=== PATIENT | female | born 2000 | race Caucasian/White ===

== ENCOUNTER → 2022-11-13 09:21 | Outpatient (CLI) | payer BC, SELFPAY ==
--- NOTE | ~2022-11-13 | US_ITS ---
EXAMINATION: US OB /maternal detail DATE: 11/13/2022 10:12 INDICATION: anatomic survey. TECHNIQUE: Real-time ultrasound of the pelvis was performed. COMPARISON: None. FINDINGS: There is a single living fetus in variable presentation. The placenta is posterior, 6.1 cm from the cervix. The cervical length is 4.4 cm on transabdominal images, which is normal. heart rate is 155 beats per minute (bpm). The amniotic fluid volume is subjectively normal. The following biometric data were obtained: Biparietal diameter (BPD): 4.5 cm; head circumference (HC): 16.2 cm; abdominal circumference (AC): 13 .6 cm; femur length (FL): 2.7 cm. These measurements are concordant. Estimated weight is 255 g +/- 38 g, which correlates with the 31st percentile when 04/09/23 is u sed as estimated date of delivery. As single measurements, these parameters are each equal to the following estimated gestational ages: BPD: 19 weeks 3 days. HC: 19 weeks 0 days. AC: 19 weeks 0 days. FL: 18 weeks 2 days. estimated gestational age based solely on measurements from this exam is 19 weeks 0 days +/- 1 weeks 2 days. The cerebral ventricles, cerebellum, cisterna magna, nuchal fold, lip, and visualized portions of the spine are normal. The heart is not well visualized. The diaphragm, stomach, kidneys, and bladder are normal. There are two umbilical arteries to yield a 3-vessel cord. The cord insertion is normal. IMPRESSION: 1. Single living fetus in variable presentation. 2. Estimated weight is 255 g +/- 38 g, which correlates with the 31st percentile when 04/09/23 is used as estimated date of delivery. 3. heart not well visualized. Otherwise normal anatomic survey. Reviewed, dictated and finalized at location E. IMPRESSION: 1. Single living fetus in variable presentation. 2. Estimated weight is 255 g +/- 38 g, which correlates with the 31st pe rcentile when 04/09/23 is used as estimated date of delivery. 3. heart not well visualized. Otherwise normal anatomic survey.
== END ==
PROVIDERS: PCP Obstetrics & Gynecology Gynecologic Oncology; Visit Provider Obstetrics & Gynecology Gynecologic Oncology
DX: Z36.9 Encounter for antenatal screening, unspecified (principal)
CPT/HCPCS: 76805

== ENCOUNTER → 2022-12-04 09:20 | Outpatient (CLI) | payer BC, SELFPAY ==
--- NOTE | ~2022-12-04 | US_ITS ---
US OB limited 12/04/2022 09:52 Indication: heart rate not well visualized on prior examination. Procedure: High-resolution Limited transabdominal obstetrical ultrasound Comparison: 11/13/2022 Findings: There is a single living intrauterine in vertex presentation. heart rate is 148 BPM. Placenta is posterior measuring 4.8 cm to the cervix. Cervical length is 5.7 cm. Amniotic f luid is subjectively normal. Impression: 1: Single living intrauterine in vertex presentation. Reviewed, dictated and finalized at location A. Impression: 1: Single living intrauterine in vertex presentation.
== END ==
PROVIDERS: PCP Obstetrics & Gynecology; Visit Provider Obstetrics & Gynecology
DX: Z36.9 Encounter for antenatal screening, unspecified (principal); Z3A.00 Weeks of gestation of pregnancy not specified
CPT/HCPCS: 76815

== ENCOUNTER 2024-01-07 10:27 | Emergency (ER) | payer BC, SELFPAY ==
--- NOTE | ~2024-01-07 | XR_ITS ---
EXAMINATION: XR chest 2V DATE: 01/07/2024 11:04 INDICATION: Cough and shortness of breath. TECHNIQUE: Frontal and lateral views of the chest were obtained. COMPARISON: None. FINDINGS: There is no pneumonia, pleural effusion, or pneumothorax. The heart size is normal. IMPRESSION: 1. No acute cardiopulmonary disease. Reviewed, dictated and finalized at location A.
[2024-01-07 10:40] VITALS: BP 125/86; PULSE 101; RESP 16; TEMP 36.6; O2SAT 100
--- NOTE | 2024-01-07 10:41 | ED.URI ---
HPI - URI/Sore Throat General Chief Complaint: Upper Respiratory Infection Stated Complaint: pneumonia test Time Seen by Provider: 01/07/24 10:31 Source: patient and family Mode of arrival: ambulatory Limitations: no limitations History of Present Illness HPI Narrative: Gianfranco is a 23-year-old female patient presenting to the clinic today with complaints of a cough, sore throat, headache, nasal congestion, and mild shortness of breath. She reports symptoms started 2 days ago. Denies any known fever, chills, body aches. Denies any chest pain. She has concern for pneumonia MD elicited complaint: sore throat and nasal congestion Related Data Home Medications Medication Instructions Recorded Confirmed sertraline 50 mg tablet (Zoloft) 50 mg PO DAILY 12/28/23 01/07/24 norethindrone 1 mg-ethinyl 1 tablet DAILY 01/07/24 01/07/24 estradiol 20 mcg (21)-iron 75 mg (7) tablet (Blisovi Fe / (28)) Allergies Allergy/AdvReac Type Severity Reaction Status Date / Time Bleach (Sodium Hypochlorite) Allergy Unknown Verified 01/07/24 10:45 doxycycline Allergy Hives Verified 01/07/24 10:45 fluconazole Allergy Hives Verified 01/07/24 10:45 latex Allergy Unknown Verified 01/07/24 10:45 Review of Systems Review of Systems: Pertinent positives per HPI. Patient denies any fever, chills, rash, headache, visual changes, dizziness, chest pain, palpitations, nausea, vomiting, diarrhea, constipation, abdominal pain, or any urinary issues. [facility] Past Medical History Medical History Anxiety Chronic headaches Dysmenorrhea Vaginal discharge Family History Family History Grandparent Diabetes mellitus Cancer Heart disease Father Hypertension Heart disease Mother Hypertension Social History Social History Social History: 12/22/23 Very confident with medical forms/Rcd, assistance for food Smoking status: Never smoker Second hand tobacco smoke exposure: No Alcohol intake: current Substance use: never Substance use type: does not use Do You Feel Safe in your Home?: Yes Lack of Transportation: No Lack of Food: Never True Current Housing: I Have Housing Concerned About Future Housing: No Difficulty Paying Gas/Electric Bills: No Difficulty Paying for Meds: No Currently Unemployed: No Education: Trade/Vocational Certificate Difficulty w/ Childcare or Family Care: No Living arrangements: with family Occupation/Education: occupation Additional occupation/education comments: [employer] Agree to blood products: Yes Comments At the time of my signature, I reviewed and agree with the nursing past medical, surgical, social, and family history. There is no relevant family history pertinent to the patient complaint. Exam Narrative: General: Well-developed, obese, in no apparent distress Head: Normocephalic, atraumatic Eyes: Pupils equally round and reactive to light bilaterally, EOM intact, sclera and conjunctive clear, no discharge, lids normal Ears: TMs intact and congested, ear canals clear, no drainage, grossly hearing normal. Nose: Nares patent, clear nasal discharge, mild inflammation, no sinus tenderness. Mouth: Oral pharynx without lesions or masses, good dentition, MMM. Postnasal drip Neck: Supple, trachea midline, no enlargement of anterior or posterior cervical nodes, no thyroid masses or goiter palpable. Cardio: Regular rate and rhythm, s1 and s2 normal, no murmur appreciated. Resp: Clear to auscultation bilaterally, no rhonchi, rales, wheezing or rubs Course Course Emergency Course: Portions of this record may have been created with voice recognition software. Level of Care: Express Care Visit Vital Signs Vital signs: Vital Signs Temperature 36.6 C 01/07/24 10:40 Pulse Rate 101 H 01/07/24 10:40 Respiratory Rate 16 01/07/24 10:40 Blood Pressure 125/86 01/07/24 10:40 Pulse Oximetry 100 01/07/24 10:40 Oxygen Delivery Room Air 01/07/24 10:40 Temperature 36.6 C 01/07/24 10:40 Pulse Rate 101 H 01/07/24 10:40 Respiratory Rate 16 01/07/24 10:40 Blood Pressure 125/86 01/07/24 10:40 Pulse Oximetry 100 01/07/24 10:40 Oxygen Delivery Room Air 01/07/24 10:40 Vital signs reviewed MDM - URI/Sore Throat MDM Narrative Medical decision making narrative: At the time of visit patient is resting comfortably on the exam table. Patient appears to be nontoxic. Labs: COVID, influenza, and strep test were all negative in the clinic today. We will send strep for culture. Diagnostics: Chest x-rays negative for any acute cardiopulmonary process. Plan: I suspect patient has URI/pharyngitis. We will send strep for culture. Supportive measures were discussed with the patient and they voiced understanding discharge instructions and agrees to treatment plan. Return precautions reviewed Differential Diagnosis Differential diagnosis: Likely upper respiratory infection, otitis media, sinusitis, viral infection, bronchitis, influenza, pharyngitis and other (COVID) Lab Data Labs: Lab Results 01/07/24 01/07/24 Range/Units 11:09 11:19 POC Influenza A Ag Negative (Negative) POC Influenza B Ag Negative (Negative) POC Grp A Strep Screen Negative (Negative) Imaging Data Radiologist's impression: ITS Impressions Chest X-Ray 01/07/24 11:11 IMPRESSION: 1. No acute cardiopulmonary disease. Discharge Plan Discharge Clinical Impression: Upper respiratory infection Qualifiers: URI type: unspecified URI Qualified Code(s): J06.9 - Acute upper respiratory infection, unspecified Pharyngitis Qualifiers: Pharyngitis/tonsillitis etiology: unspecified etiology Qualified Code(s): J02.9 - Acute pharyngitis, unspecified Patient Disposition: Home, Self-Care Condition: Stable Instructions: Antibiotic Form, Pharyngitis (ED), Cold Symptoms (ED) Additional Instructions: COVID, influenza, and strep test were all negative in the clinic today. We will send strep for culture. Chest x-rays negative for any acute cardiopulmonary process. May take DayQuil/NyQuil for cold/flu symptoms Increase fluids and stay well hydrated Tylenol/motrin for pain/fever Flonase and OTC antihistamines as directed Vicks vapor rub to open sinuses Sinus rinses for congestion Cepacol spray, cough drops, throat lozenges, warm tea with honey/lemon, gargle salt water to soothe throat BRAT diet for diarrhea Clear liquids x 24 hours then advance as tolerated for nausea/vomiting Go to the ED if you develop a worsening in your condition- high fever not controlled by Tylenol or Motrin, dehydration, weakness, lethargy, shortness of breath, or chest pain. Follow up with your PCP in 3-5 days if symptoms persist. Prescriptions: No Action norethindrone-e.estradiol-iron [Blisovi Fe 04/03 (28)] 1 mg-20 mcg (21)/75 mg (7) tablet 1 tablet DAILY sertraline [Zoloft] 50 mg tablet 50 mg PO DAILY Follow-up/Referrals: UNKNOWN,DOCTOR [Primary Care Provider] - Stand Alone Forms: Work/School Release IP Time of Disposition: 11:20 Quality NIHSS Nursing Documentation ED NIHSS nursing documentation: reviewed/agree
[2024-01-07 11:11] LABS: EDSTREPNEGPOS1 Negative (Negative)
[2024-01-07 11:21] LABS: EDINFLUASCREEN Negative (Negative); EDINFLUBSCREEN Negative (Negative)
== END 2024-01-07 11:29 | disposition home or self-care (01) ==
PROVIDERS: Emergency Provider Nurse Practitioner Family
DX: J06.9 Acute upper respiratory infection, unspecified (principal); J02.9 Acute pharyngitis, unspecified; F41.9 Anxiety disorder, unspecified
CPT/HCPCS: 71046; 87081; 87804; 87880; 99213; G0463

== ENCOUNTER 2024-05-15 17:16 | Emergency (ER) | payer MEDICAID, SELFPAY ==
[2024-05-15 17:21] VITALS: BP 120/76; PULSE 125; RESP 20; TEMP 36.9; O2SAT 99
[2024-05-15 17:44] LABS: EDINFLUASCREEN Negative (Negative); EDINFLUBSCREEN Negative (Negative)
[2024-05-15 17:44] LABS: EDCOVIDSCREEN Negative (Negative)
--- NOTE | 2024-05-15 17:44 | ED.URI ---
HPI - URI/Sore Throat General Chief Complaint: Upper Respiratory Infection Stated Complaint: flu Like Time Seen by Provider: 05/15/24 17:45 Source: patient Mode of arrival: ambulatory Limitations: no limitations History of Present Illness HPI Narrative: 23 yo F presents with c/o fatigue, headache, bodyaches, chills fever starting at 10 pm last night. Taking tylenol and ibuprofen to treat symptoms. No nausea vomiting diarrhea. Denies congestion, cough, sore throat. All systems reviewed and negative except as noted above. Related Data Home Medications ?Medication ?Instructions ?Recorded ?Confirmed ?Last Taken ?Type sertraline 50 mg tablet (Zoloft) 50 mg PO DAILY 12/28/23 01/07/24 Unknown History norethindrone 1 mg-ethinyl 1 tablet DAILY 01/07/24 01/07/24 Unknown History estradiol 20 mcg (21)-iron 75 mg (7) tablet (Blisovi Fe 04/03 (28)) Allergies Allergy/AdvReac Type Severity Reaction Status Date / Time Bleach (Sodium Hypochlorite) Allergy Unknown Hives Verified 05/15/24 17:21 doxycycline Allergy Unknown Hives Verified 05/15/24 17:21 fluconazole Allergy Unknown Hives Verified 05/15/24 17:21 latex Allergy Unknown Hives Verified 05/15/24 17:21 Review of Systems Review of Systems: CONSTITUTIONAL: Reports fever, chills, or sweats. EYES: Denies visual changes, redness, or discharge. ENT: Denies rhinorrhea, congestion, sore throat, or otalgia. CARDIOVASCULAR: Denies chest pain, palpitations, or edema. RESPIRATORY: Denies cough or dyspnea. GASTROINTESTINAL: Denies abdominal pain, nausea, vomiting, or diarrhea. GENITOURINARY: Denies dysuria or hematuria. SKIN: Denies rash or itching. MUSCULOSKELETAL: Denies back pain, joint pain. Reports myalgia. NEUROLOGIC: reports headache. Denies numbness, or weakness. PSYCHIATRIC: Denies anxiety or depression. All other systems reviewed are negative, except as documented in HPI. [facility] Past Medical History Medical History Anxiety Chronic headaches Dysmenorrhea Vaginal discharge Family History Family History Grandparent Diabetes mellitus Cancer Heart disease Father Hypertension Heart disease Mother Hypertension Social History Social History Social History: 12/22/23 Very confident with medical forms/Rcd, assistance for food Smoking status: Never smoker Second hand tobacco smoke exposure: No Alcohol intake: current Substance use: never Substance use type: does not use Do You Feel Safe in your Home?: Yes Lack of Transportation: No Lack of Food: Never True Current Housing: I Have Housing Concerned About Future Housing: No Difficulty Paying Gas/Electric Bills: No Difficulty Paying for Meds: No Currently Unemployed: No Education: Trade/Vocational Certificate Difficulty w/ Childcare or Family Care: No Living arrangements: with family Occupation/Education: occupation Additional occupation/education comments: [employer] Agree to blood products: Yes Comments At time of signature, agree with nursing past medical, surgical, social and family history. There is no relevant family history pertinent to the presenting complaint. Exam Narrative: GENERAL: This is a well-nourished, well-developed patient, in no apparent distress. HEAD: normocephalic, atraumatic. EYES: PERRL. Sclera clear/white. Vision is grossly intact. EARS: External ears normal, auditory canals clear and without drainage, TMs normal without perforation. Hearing grossly intact. NOSE: External nose normal with no obvious nasal discharge, nares without redness, no rhinorrhea. THROAT: Mucous membranes moist, posterior pharynx clear. NECK: Neck supple, non-tender without lymphadenopathy, masses or thyromegaly. CARDIOVASCULAR: Regular rate and rhythm without murmurs, gallops, or rubs. RESPIRATORY: Clear to auscultation. Breath sounds equal bilaterally. No wheezes, rales, or rhonchi. SKIN: warm, Dry, intact with no suspicious lesions or rash, good texture and turgor. NEURO: awake, alert, and oriented to person, place and time. There were no obvious focal neurologic abnormalities. EXTREMITIES: No joint tenderness, effusion, or edema noted. Course Course Level of Care: Express Care Visit Vital Signs Vital signs: Vital Signs Temperature 36.9 C 05/15/24 17:21 Pulse Rate 125 H 05/15/24 17:21 Respiratory Rate 20 05/15/24 17:21 Blood Pressure 120/76 05/15/24 17:21 Pulse Oximetry 99 05/15/24 17:21 Oxygen Delivery Room Air 05/15/24 17:21 Temperature 36.9 C 05/15/24 17:21 Pulse Rate 125 H 05/15/24 17:21 Respiratory Rate 20 05/15/24 17:21 Blood Pressure 120/76 05/15/24 17:21 Pulse Oximetry 99 05/15/24 17:21 Oxygen Delivery Room Air 05/15/24 17:21 reviewed MDM - URI/Sore Throat MDM Narrative Medical decision making narrative: negative COVID and influenza testing. Testing done at less than 24 hours of symptoms. Is possibly a false negative. Discussed this with patient. Patient can repeat test with an [id number] flu/ COVID test after 48 is hours of symptoms if needed. Patient is well-appearing, nontoxic. Recommend [id number] medications to treat symptoms. Please be advised this is a medical document. It is intended for [id number] communication. It is written in medical language and may contain unfamiliar abbreviations or verbiage. Medical documents are intended to carry relevant information, facts as evident, and the clinical opinion of the practitioner at the time of the encounter. This report may have been done utilizing a voice recognition system. Attempts have been made to correct errors. However, there may be uncorrected grammatical, spelling, and recognition errors present. The file time of this note does not necessarily represent the time of service. Differential Diagnosis Differential diagnosis: Likely upper respiratory infection, sinusitis, viral infection and influenza Lab Data Labs: Lab Results 05/15/24 05/15/24 Range/Units 17:25 17:35 POC Influenza A Ag Negative (Negative) POC Influenza B Ag Negative (Negative) POC SARS CoV-2 Ag Negative (Negative) Discharge Plan Discharge Clinical Impression: Influenza Patient Disposition: Home, Self-Care Condition: Stable Instructions: Influenza (ED) Additional Instructions: your influenza and COVID test was negative today. Your testing may have been done to soon and could be a false-negative. Take medications as prescribed. Alternate between ibuprofen and Tylenol every 4 hours as needed for pain and fever. Drink at least 64 oz water a day. See your doctor if symptoms are not improving. Patient Language: Greek Prescriptions: New ondansetron 4 mg tablet,disintegrating 4 mg PO Q8H PRN (Reason: nausea and vomiting) Qty: 12 0RF oseltamivir [Tamiflu] 75 mg capsule 75 mg PO Q12H 5 Days Qty: 10 0RF No Action norethindrone-e.estradiol-iron [Blisovi Fe 04/03 (28)] 1 mg-20 mcg (21)/75 mg (7) tablet 1 tablet DAILY sertraline [Zoloft] 50 mg tablet 50 mg PO DAILY Follow-up/Referrals: Nuria Castlilo APN-C [Primary Care Provider] - Stand Alone Forms: Work/School Release IP Time of Disposition: 17:56
== END 2024-05-15 17:58 | disposition home or self-care (01) ==
PROVIDERS: Emergency Provider Nurse Practitioner Family; PCP Nurse Practitioner Family
DX: J11.1 Influenza due to unidentified influenza virus with other respiratory manifestations (principal); Z20.822 Contact with and (suspected) exposure to COVID-19; F41.9 Anxiety disorder, unspecified
CPT/HCPCS: 87426; 87804; 99213; G0463

== ENCOUNTER 2024-12-18 17:42 | Emergency (ER) | payer OTHER, MEDICAID, SELFPAY ==
--- NOTE | 2024-12-18 17:44 | ED_ITS ---
HPI - URI/Sore Throat General Chief Complaint: Upper Respiratory Infection Stated Complaint: Upper Respiratory Infection Time Seen by Provider: 12/18/24 17:43 Source: patient Mode of arrival: ambulatory Limitations: no limitations History of Present Illness HPI Narrative: Gianfranco is a 24-year-old female patient presenting to the clinic today with fevers, chills, body aches, cough, nasal congestion, headache, and sore throat x1 day. Highest temperature was 102? F. she has taken Tylenol for her symptoms. Rates her pain as 7/10 currently. She reports her child was diagnosed with croup, ear infection, and conjunctivitis today at his doctor's office. MD elicited complaint: sore throat and nasal congestion Related Data Home Medications ?Medication ?Instructions ?Recorded ?Confirmed ?Last Taken ?Type sertraline 50 mg tablet (Zoloft) 100 mg PO DAILY 12/2712/18/24 Unknown History norgestimate 0.25 mg-ethinyl tablet 12/18/24 Unknown History estradiol 0.035 mg tablet (Tiffani) Allergies Allergy/AdvReac Type Severity Reaction Status Date / Time Bleach (Sodium Hypochlorite) Allergy Unknown Hives Verified 12/18/24 17:49 doxycycline Allergy Unknown Hives Verified 12/18/24 17:49 fluconazole Allergy Unknown Hives Verified 12/18/24 17:49 latex Allergy Unknown Hives Verified 12/18/24 17:49 Review of Systems Review of Systems: Pertinent positives per HPI. Patient denies any rash, headache, visual changes, dizziness, shortness of breath, chest pain, palpitations, nausea, vomiting, diarrhea, constipation, abdominal pain, or any urinary issues. [facility] Past Medical History Medical History Chronic headaches Vaginal discharge Dysmenorrhea Anxiety Family History Family History Grandparent Diabetes mellitus Cancer Heart disease Father Hypertension Heart disease Mother Hypertension Social History Social History Social History: 12/22/23 Very confident with medical forms/Rcd, assistance for food Smoking status: Never smoker Second hand tobacco smoke exposure: No Alcohol intake: current Substance use: never Substance use type: does not use Do You Feel Safe in your Home?: Yes Lack of Transportation: No Lack of Food: Never True Current Housing: I Have Housing Concerned About Future Housing: No Difficulty Paying Gas/Electric Bills: No Difficulty Paying for Meds: No Currently Unemployed: No Education: Trade/Vocational Certificate Difficulty w/ Childcare or Family Care: No Living arrangements: with family Occupation/Education: occupation Additional occupation/education comments: [employer] Agree to blood products: Yes Comments At the time of my signature, I reviewed and agree with the nursing past medical, surgical, social, and family history. There is no relevant family history pertinent to the patient complaint. Exam Narrative: General: Well-developed, obese, in no apparent distress Head: Normocephalic, atraumatic Eyes: Pupils equally round and reactive to light bilaterally, EOM intact, sclera and conjunctive clear, no discharge, lids normal Ears: TMs intact and congested, ear canals clear, no drainage, grossly hearing normal. Nose: Nares patent, clear nasal discharge, mild inflammation, no sinus tenderness. Mouth: Oral pharynx red without lesions or masses, good dentition, MMM. Postnasal drip Neck: Supple, trachea midline, no enlargement of anterior or posterior cervical nodes, no thyroid masses or goiter palpable. Cardio: Regular rate and rhythm, s1 and s2 normal, no murmur appreciated. Resp: Clear to auscultation bilaterally, no rhonchi, rales, wheezing or rubs Course Course Emergency Course: Portions of this record may have been created with voice recognition software. Level of Care: Express Care Visit Vital Signs Vital signs: Vital Signs Temperature 37.6 C H 12/18/24 17:49 Pulse Rate 132 H 12/18/24 17:49 Respiratory Rate 18 12/18/24 17:49 Blood Pressure 117/78 12/18/24 17:49 Pulse Oximetry 98 12/18/24 17:49 Oxygen Delivery Room Air 12/18/24 17:49 Temperature 37.6 C H 12/18/24 17:49 Pulse Rate 132 H 12/18/24 17:49 Respiratory Rate 18 12/18/24 17:49 Blood Pressure 117/78 12/18/24 17:49 Pulse Oximetry 98 12/18/24 17:49 Oxygen Delivery Room Air 12/18/24 17:49 Vital signs reviewed MDM - URI/Sore Throat MDM Narrative Medical decision making narrative: At the time of visit patient is resting comfortably on the exam table. Patient appears to be nontoxic. C/O fevers, chills, cough, body aches, nasal congestion, headache, and sore throat x1 day. Highest temperature was 102? F. she has taken Tylenol for her symptoms. Rates her pain as 7/10 currently. She reports her child was diagnosed with croup, ear infection, and conjunctivitis today at his doctor's office. On exam patient has bilateral TM congestion, clear nasal drainage, oral pharynx mildly red, no tonsillar enlargement or cervical lymphadenopathy, lung sounds are clear, heart rates tachycardic but regular rate rhythm Labs: COVID, influenza, and strep test were performed. All testing was negative in the clinic today. We will send strep for culture. Plan: I suspect patient has URI/pharyngitis/viral syndrome. Lung sounds are clear there is no sign of bacterial infection in the clinic today. Work note was given. Supportive measures were discussed with the patient and they voiced understanding discharge instructions and agrees to treatment plan. Return precautions reviewed Differential Diagnosis Differential diagnosis: Likely upper respiratory infection, otitis media, sinusitis, viral infection, bronchitis, influenza, pharyngitis and other (COVID) Lab Data Labs: Lab Results 12/18/24 Range/Units 18:05 POC Grp A Strep Screen Negative (Negative) Discharge Plan Discharge Clinical Impression: Viral infection Upper respiratory infection Qualifiers: URI type: unspecified URI Qualified Code(s): J06.9 - Acute upper respiratory infection, unspecified Pharyngitis Qualifiers: Pharyngitis/tonsillitis etiology: unspecified etiology Qualified Code(s): J02.9 - Acute pharyngitis, unspecified Patient Disposition: Home Condition: Stable Instructions: Antibiotic Form, Pharyngitis (ED), Viral Syndrome (ED), Cold Symptoms (ED) Additional Instructions: COVID, flu, and strep test were all negative in the clinic today. We will send strep for culture if this comes back positive we will contact him place you on antibiotics at that time. Lung sounds are clear and there is no sign of bacterial infection in the clinic today. May take DayQuil/NyQuil as per bottle directions for cold/flu symptoms Increase fluids and stay well hydrated May take Tylenol or motrin as directed on bottle for pain/fever May use Flonase 1 spray in each nare daily May take OTC antihistamines such as Zyrtec or Claritin daily as directed on bottle May apply Vicks vapor rub to chest to open sinuses Sinus rinses for congestion Cepacol spray, cough drops, throat lozenges, warm tea with honey/lemon, gargle salt water to soothe throat BRAT diet for diarrhea Clear liquids x 24 hours then advance as tolerated for nausea/vomiting Go to the ED if you develop a worsening in your condition- high fever not controlled by Tylenol or Motrin, dehydration, weakness, lethargy, shortness of breath, or chest pain. Follow up with your PCP in 3-5 days if symptoms persist. Patient Language: Uzbek Prescriptions: No Action norgestimate-ethinyl estradiol [Tiffani] 0.25-0.035 mg tablet sertraline [Zoloft] 50 mg tablet 100 mg PO DAILY Follow-up/Referrals: Nuria Castillo APN-C [Primary Care Provider, Family Practice] Stand Alone Forms: Work/School Release IP Time of Disposition: 18:11 Quality NIHSS Nursing Documentation ED NIHSS nursing documentation: reviewed/agree
--- OUTSIDE RECORDS SUMMARY | 2024-12-18 17:45 | XMS_ITS | Encounter Summary ---
Author Organization [facility] Address [address] [place] [id number] Care Team Providers Care Shot Core Drill Operator Name Role Phone JudbarbieNuria dubon [place] [facility]TH Primary Care Provider [phone] Encounter Details Date Type Department Care Team (Late st Contact Info) Description 03/30/2024 Abstract [facility] [address] Nilson Villeda [place] Social History Tobacco Use Types Packs/Day Years Used Date Smoking Tobacco: Never Smokeless Tobacco: Never Alcohol Use Standard Drinks/Week Comments Yes 2.7 (1 standard drink = 0.6 oz p ure alcohol) [facility] Utilities Answer Date Recorded In the past 12 months has [facility] [employer] Weekend, oil, or water [employer] threatened to shut off services in your home? No 04/07/2023 Humiliation, Afraid, Rape, and Kick questionnair e Answer Date Recorded Within the last year, have y ou been afraid of your partner or ex-partner? No 04/07/2023 Within the last year, have y ou been humiliated or emotionally abused in other ways by your partner or ex-partner? No Within the last year, have y ou been kicked, hit, slapped, or otherwise physically hurt by your partner or ex-partner? No 04/07/2023 Within the last year, have y ou been raped or forced to have any kind of sexual activity by your partner or ex-partner? No 04/07/2023 Social Connection and Isolat ion Panel [NHANES] Answer Date Recorded In a typical week, how many times do you talk on the phone with family, friends, or neighbors? More than three times a week 04/07/2023 How often do you get togethe r with friends or relatives? Twice a week 04/07/2023 How often do you attend chur or advent services? Never 04/07/2023 Do you belong to any clubs o r organizations such as hoahaoism groups, unions, fraternal or athletic groups, or school groups? No 04/07/2023 How often do you attend meet ings of the clubs or organizations you belong to? Never 04/07/2023 Are you , , di vorced, , never , or living with a partner? Never 04/07/2023 AUDIT-C Answer Date Recorded Q1: How often do you have a drink containing alcohol? Never 04/07/2023 Q2: How many drinks containi ng alcohol do you have on a typical day when you are drinking? Patient does not drink Q3: How often do you have si x or more drinks on one occasion? Never 04/07/2023 Overall Financial Resource Strain (CARDIA) Answe r Date Recorded How hard is it for you to pa y for the very basics like food, housing, medical care, and heating? Somewhat hard 04/07/2023 PHQ-2 Answer Date Recorded PHQ-2 Score - If the patient scores above 3, please move on to questions 3-9 0 12/02/2021 [facility] - Occupational Stress Questionnaire Answer Date Recorded Do you feel stress - tense, restless, nervous, or anxious, or unable to sleep at night because your mind is troubled all the time - these days? Rather much 04/07/2023 Exercise Vital Sign Answer Date Recorde d On average, how many days pe r week do you engage in moderate to strenuous exercise (like a brisk walk)? 0 days 04/07/2023 On average, how many minutes do you engage in exercise at this level? 0 min 04/07/2023 Hunger Vital Sign Answer Date Recorded Within the past 12 months, y ou worried that your food would run out before you got the money to buy more. Never true 04/07/19 Within the past 12 months, t he food you bought just didn't last and you didn't have money to get more. Never true 04/07/2023 PRAPARE - Transportation Answer Date Re corded In the past 12 months, has l ack of transportation kept you from medical appointments or from getting medications? No 03/16 In the past 12 months, has l ack of transportation kept you from meetings, work, or from getting things needed for daily living? No 04/07/2023 Housing Stability Vital Sign Answer Korey e Recorded In the last 12 months, was t here a time when you were not able to pay the mortgage or rent on time? No 04/07/2023 In the last 12 months, how many places have you lived? 2 04/07/2023 In the last 12 months, was t here a time when you did not have a steady place to sleep or slept in a alf (including now)? 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 Answer Date of Assessment Author Status No 04/07/2023 11:00 AM Iris Amaya RN Active * Do you have serious difficulty walking or climbing stairs? Answer Date of Assessment Author Status No 04/07/2023 11:00 AM Iris Amaya RN Active * Do you have difficulty dressing or bathing? Answer Date of Assessment Author Status No 04/07/2023 11:00 AM Iris Amaya RN Active * Because of a physical, mental, or emotional condition, do you have difficulty doing errands alone such as visiting a doctor's office or shopping? Answer Date of Assessment Author Status No 04/07/2023 11:00 AM Iris Amaya RN Active documented as of this encounter Mental Status * Because of a physical, mental, or emotional condition, do you have serious difficulty concentrating, remembering, or making decisions? Answer Entry Date Author Status No 04/07/2023 11:00 AM Iris Amaya RN Active documented in this encounter Plan of Treatment Not on file documented as of this encounter Procedures Procedure Name Priority Date/Time Associated Diagnosis Comments HEMOGLOBIN, GLYCOSYLATED Routine 12/28/2023 COMPREHENSIVE METABOLIC PANEL Routine 12/28/2023 LIPID PANEL Routine 12/28/2023 CBC, MANUAL DIFF Routine 12/28/2023 THYROID STIM HORMONE TSH Routine 12/28/2023 documented in this encounter Results * COMPREHENSIVE METABOLIC PANEL (12/28/2023) SODIUM S/P/B 140 GLUCOSE 73 mg/dL AST 12 BUN 12 CREATININE S/P/B 0.68 0.5 - 1.0 CALCIUM S/P/B 9.8 POTASSIUM S/P/B 4.5 CHLORIDE S/P/B 104 ALT 12 GFR ESTIMATE 125 Default History Genericprovider LABORATORY Final Result * LIPID PANEL (12/28/2023) CHOLESTEROL 291 TRIGLYCERIDES 223 HDL 63 LDL (CALCULATED) 187 NON HDL CHOLESTEROL 228 Default History Genericprovider LABORATORY Final Result * CBC, MANUAL DIFF (12/28/2023) WBC 5.9 HGB 15.9 HCT 48.7 PLT 282 Default History Genericprovider LABORATORY Final Result * HEMOGLOBIN, GLYCOSYLATED (12/28/2023) HGB A1C 4.9 % Default History Genericprovider LABORATORY Final Result * THYROID STIM HORMONE TSH (12/28/2023) TSH 0.93 us Default History Genericprovider LABORATORY Final Result documented in this encounter Visit Diagnoses Not on filedocumented in this encounter Care Teams Shot Core Drill Operator Relationship Specialty Start Date End Date Nuria Castillo FNP [address] [place] [address] PCP - General 03/17/24 documented as of this encounter
--- OUTSIDE RECORDS SUMMARY | 2024-12-18 17:45 | XMS_ITS | Clinical Summary ---
Author Organization [facility] [address] Address [address] [place] [address] Phone Care Team Providers Care Software Security Architect Name Role Phone No, Physician Primary Care Provider [phone] Allergies No known active allergies Medications levonorgestreL-eth inyl estrad (Larissia) 0.1-20 mg-mcg per tabletIndications: Oral contraceptive pill surveillance Take 1 tablet by mouth daily 84 tablet 4 1 Active Active Problems Problem Noted Date Diagnosed Date Dysarthrosis 07/11/2012 Developmental disability 07/11/2012 Closed fracture of shaft of tibia 02/21/2009 Immunizations Immunization Administration Dates Next Due DTaP 2000,2000,2000 HPV, Quadrivalent 05/31/2013,01/23/2013,11/23/19 13 Hep A, Ped Unspecified 08/21/2010 Hep A, Pediatric 02/23/2011 Hep B / HiB 2000,2000 Hep B, Adolescent or Pediatric 05/27/2001 IPV 2000,2000,2000 Influenza LAIV (Nasal) 01/23/2013 Influenza, Split 01/22/2010 MMR 05/27/2001 Meningococcal MCV4, Unspecified 12/21/2016 Meningococcal MCV4P (Menactra) 09/28/2011 Pneumococcal Conjugate 7-Valent 05/27/2001,02/15,2000,2000 Tdap 09/28/2011 Varicella 08/21/2010,05/27/2001 Family History Medical History Relation Name Comments Heart attack Father Hypertension Father Hypertension Father's Sister Heart attack Maternal Grandfather Hypertension Paternal Grandfather Hypertension Paternal Grandmother Relation Name Status Comments Father Father's Sister Maternal Grandfather Paternal Grandfather Paternal Grandmother Social History Tobacco Use Types Packs/Day Years Used Date Smoking Tobacco: Never Smokeless Tobacco: Never Alcohol Use Standard Drinks/Week Comments Never 0 (1 standard drink = 0.6 oz pur e alcohol) AUDIT-C Answer Date Recorded Q1: How often do you have a drink containing alc ohol? Never 03/12/2021 Average Number of Drinks Not on file 021 Frequency of Binge Drinking Not on file 02/13 Personal Safety Answer Date Recorded Getting School Help Needed Not on file 05/27 Comments No Sex and Gender Information Value Date Recorded Sex Assigned at Not on file Legal Sex Female 5:07 AM NEURO PSYCH SALES SPECIALIST Gender Identity Female 03/10/2021 7:57 PM NEURO PSYCH SALES SPECIALIST Sexual Orientation Not on file Occupation Industry Job Start Date Job End Date Not on file Not on file Not on file Not on file Student - [employer] Not on file Not on file Not on file Obstetrics History Para Term AB IAB SAB Ectopic Multiple Livin g Live Births 0 0 0 0 0 0 0 0 0 0 0 Last Filed Vital Signs Vital Sign Reading Time Taken Comments Blood Pressure 110/80 03/12/2021 11:19 AM NEURO PSYCH SALES SPECIALIST Pulse - - Temperature - - Respiratory Rate - - Oxygen Saturation - - Inhaled Oxygen Concentration - - Weight 77.7 kg (171 lb 3.2 oz) 03/12/2021 11:19 AM NEURO PSYCH SALES SPECIALIST Height 158.7 cm (5' 2.48) 03/12/2021 11:[address] Body Mass Index 30.83 03/12/2021 11:19 AM NEURO PSYCH SALES SPECIALIST Plan of Treatment Not on file Insurance [employer] [facility] Care Teams Software Security Architect Relationship Specialty Start Date End Date No, Physician PCP - General 12/06/19
--- OUTSIDE RECORDS SUMMARY | 2024-12-18 17:46 | XMS_ITS | Clinical Summary ---
Author Organization [facility] Address [address] [place] [address] Care Team Providers Care Door Liner Name Role Phone Nuria Castillo FIELD KILN BURNER Primary Care Provider Allergies Active Allergy Reactions Criticality Noted Date Comments Doxycycline Rash Low 04/07/2023 Latex Rash Low 09/24/2021 Pt states she will have reaction if she cleans with bleach and then putting on latex gloves. Phenazopyridine Rash,Itching Low 06/24/2022 Sodium Hypochlorite Rash Low 09/24/2021 BLEACH. Pt states she hasreaction wearing latex gloves after cleaning with bleach Sulfamethoxazole-Trimethop rim Hives,Swelling Medium 04/07/2023 Medications aspirin EC (ASPIRIN LOW DOSE) 81 MG tablet Take 1 tablet (81 mg total) by mouth daily. 10/02/2022 Active BLISOVI FE 04/03 1-20 MG-MCG tablet Take 1 tablet by mouth daily. 03/18/2024 Active sertraline (ZOLOFT) 50 MG tablet Take 1 tablet (50 mg total) by mouth daily. 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 Developmental disability 07/11/2012 Dysarthrosis 07/11/2012 Closed fracture of shaft of tibia 02/21/2009 Immunizations Immunization Administration Dates Next Due Dtap (Acel-Immune) 2000,2000, 001 HPV4 (Gardasil) 05/31/2013,01/23/2013,11/22/2012 Hepatitis A (Generic) 08/21/2010 Hepatitis A (Havrix [address]) 02/23/2011 Hepatitis B Pediatric 05/27/2001 Hib-Hepatitis B (Comvax) 2000,2000 Influenza (FluMist) 01/23/2013 Influenza (Generic) 01/22/2010 MMR (MMRII) 05/27/2001 MODERNA COVID-19 (12+) MRNA, LNP-S, PF, 100 MCG/ 0.5 ML DOSE 12/12/2020,11/14/2020 Meningococcal (Menactra) 09/28/2011 Meningococcal Vac A,C,Y,W-135 Sc 12/21/2016 Pneumococcal (Prevnar 7) 05/27/2001,06/2000,2000,07/19 Polio IPV (Ipol) 2000,2000, 1 Tdap (Generic) 09/28/2011 Varicella (Varivax) 08/21/2010,05/27/2001 Family History Medical History Relation Comments Heart Disease Father Heart attack Hypertension Father Kidney Disease Father Open Heart Father Early Maternal Grandfather Heart Disease Maternal Grandfather Heart attac k Cancer Maternal Grandmother Diffuse Lar ge B cell non hodgkin's lymphoma Cancer Maternal Uncle Prostate cancer Hypertension Mother Diabetes Paternal Aunt Heart Disease Paternal Aunt Heart attack Cancer Paternal Grandfather Stomach can cer Diabetes Paternal Grandfather Heart Disease Paternal Grandfather Heart attac k Hypertension Paternal Grandfather Kidney Disease Paternal Grandfather Open Heart Paternal Grandfather Diabetes Paternal Grandmother Relation Status Comments Brother Alive Father Alive Maternal Grandfather Maternal Grandmother Alive Maternal Uncle Mother Alive Paternal Aunt Paternal Grandfather Paternal Grandmother Alive Social History Tobacco Use Types Packs/Day Years Used Date Smoking Tobacco: Never Smokeless Tobacco: Never Tobacco Cessation:Counseling Given: Not Answered Alcohol Use Standard Drinks/Week Comments Yes 2.7 (1 standard drink = 0.6 oz p ure alcohol) [facility] Utilities Answer Date Recorded In the past 12 months has e [employer], gas, oil, or water [employer] threatened to shut off services in your [...] 04/07/2023 How often do you attend chur ch or jain services? Never 04/07/2023 Do you belong to any clubs o r organizations such as mormon groups, unions, fraternal or athletic groups, or [...] move on to questions 3-9 0 12/02/2021 [facility] - Occupational Stress [...] place to sleep or slept in a fpc (including now)? No 04/07/2023 Comments No Sex and Gender Information Value Date Recorded Sex Assigned at Female 04/03/2024 2:13 PM MINI LAB OPERATOR Legal Sex Female 9:25 PM CDT Gender Identity Not on file Sexual Orientation Not on file Last Filed Vital Signs Vital Sign Reading Time Taken Comments Blood Pressure 110/80 03/21/2024 11:46 AM MINI LAB OPERATOR Pulse 107 03/21/2024 11:46 AM MINI LAB OPERATOR Temperature 36.9 C (98.4 F) 04/12/2023 2:45 PM MINI LAB OPERATOR Respiratory Rate 20 04/10/2023 9:00 AM MINI LAB OPERATOR Oxygen Saturation 98% 04/12/2023 2:45 PM MINI LAB OPERATOR Inhaled Oxygen Concentration - - Weight 94.3 kg (208 lb) 03/21/2024 11:46 AM MINI LAB OPERATOR Height 160 cm (5' 3) 03/21/2024 11:46 AM MINI LAB OPERATOR Body Mass Index 36.85 03/21/2024 11:46 AM MINI LAB OPERATOR Plan of Treatment Health Maintenance Due Date Last Done Comments Cervical Cancer Screening Pap Smear (Age 21 to 29) Every 3 Years 2000 Cervical Cancer Screening 2000 Annual Physical 05/21/2003 Chlamydia Screening Females ages 16-24 2016 DTaP, Tdap and Td Vaccines (5 - Td or Tdap) 09/27/2021 09/28/2011, 2000, 2000, Additional history exists COVID-19 Vaccine ( season) 2024 12/12/2020, 11/14/2020 Hepatitis B Vaccines Completed 05/27/2001, 2000, 2000 Pneumococcal Vaccine: Pediatrics (0 to 5 Years) and At-Risk Patients (6 to 49 Years) Aged Out 05/27/2001, 02/15/2001, 2000, Additional history exists No longer eligible based on patient's age to complete this topic HPV Vaccines Completed 05/31/2013, 01/13, 11/22/2012 Meningococcal Vaccine Aged Out 12/21/2016, 012 No longer eligible based on patient's age to complete this topic Hepatitis C Completed 09/14/2022 Meningococcal B Vaccine Aged Out No l onger eligible based on patient's age to complete this topic RSV Immunizations Under 20 Months Aged Out No longer eligible based on patient's age to complete this topic Procedures Procedure Name Priority Date/Time Associated Diagnosis Comments HEPATITIS C ANTIBODY Routine 09/14/2022 from Last 3 Months or Most Recently Relevant to Health Maintenance Results * HEPATITIS C ANTIBODY (09/14/2022) HEPATITIS C AB non-reacti ve us Default History Genericprovider LABORATORY Final Result from Last 3 Months or Most Recently Relevant to Health Maintenance Insurance MEDICAID Advance Directives * Full Code (Latest Code Status on File) Date Activated Date Inactivated Comments 04/07/2023 2:55 PM 04/10/2023 5:10 PM Care Teams Door Liner Relationship Specialty Start Date End Date Nuria Castillo FNP [address] [place] [phone] PCP - General 03/17/24
[2024-12-18 17:49] VITALS: BP 117/78; PULSE 132; RESP 18; TEMP 37.6; O2SAT 98
[2024-12-18 18:06] LABS: EDSTREPNEGPOS1 Negative (Negative)
[2024-12-18 18:13] LABS: EDCOVIDSCREEN Negative (Negative); EDINFLUASCREEN Negative (Negative); EDINFLUBSCREEN Negative (Negative)
== END 2024-12-18 18:16 | disposition home or self-care (01) ==
PROVIDERS: Emergency Provider Nurse Practitioner Family; PCP Nurse Practitioner Family
DX: B34.9 Viral infection, unspecified (principal); J06.9 Acute upper respiratory infection, unspecified; J02.9 Acute pharyngitis, unspecified; Z20.822 Contact with and (suspected) exposure to COVID-19; F41.9 Anxiety disorder, unspecified
CPT/HCPCS: 87081; 87426; 87804; 87880; 99213; G0463